=== PATIENT | female | born 1945 | race Caucasian/White ===

== ENCOUNTER → 2016-07-31 | Outpatient (CLI) | payer OTHER, BC ==
--- NOTE | 2016-07-31 16:34 | DX ---
Lumbar Spine, 6 Views Indication: Chronic back pain.. Technique: Upright AP, obliques, and lateral views in the neutral, flexed, and extended position. Comparison: None. Findings: Lumbar spine has minimal levocurvature apex at L3 with a Bernard angle of 8 degrees between L 1 and L5 pedicles. Alignment is normal on the lateral view. Normal range of motion. No instability. N o compression fracture or pars defect. Mild degenerative disk disease is present at L2-L3 through L5- S1. Hardware along the left iliac wing consists of cortical screws. Impression: 1. Mild multilevel degenerative disk and facet arthropathy. 2. No compression fracture or pars defect.
== END ==
LOC: FIMAGING 10:51
PROVIDERS: ATTEND Anesthesiology Pain Medicine
DX: M51.36 Other intervertebral disc degeneration, lumbar region (principal); M51.37 Other intervertebral disc degeneration, lumbosacral region; M46.96 Unspecified inflammatory spondylopathy, lumbar region; M46.97 Unspecified inflammatory spondylopathy, lumbosacral region

== ENCOUNTER → 2016-08-13 | Outpatient (CLI) | payer OTHER, BC ==
[~2016-08-13] MED LIST: GADOBUTROL 10 ML VIAL IVP ONE
[2016-08-13 15:33] LABS: CREATININE 0.9 mg/dL (0.6-1.0); GLOMERULAR FILTRATION RATE > 60
== END ==
LOC: FIMAGING 14:46
PROVIDERS: ATTEND Physician Assistant
DX: M51.36 Other intervertebral disc degeneration, lumbar region (principal); M51.26 Other intervertebral disc displacement, lumbar region; M48.06 Spinal stenosis, lumbar region; M99.73 Connective tissue and disc stenosis of intervertebral foramina of lumbar region; M12.88 Other specific arthropathies, not elsewhere classified, other specified site; M43.17 Spondylolisthesis, lumbosacral region
CPT/HCPCS: 72158; A9585

== ENCOUNTER → 2017-03-19 | Outpatient (CLI) | payer OTHER, BC | LOC: FIMAGING 08:42 | PROVIDERS: ATTEND Family Medicine | DX: Z12.31 Encounter for screening mammogram for malignant neoplasm of breast (principal) | CPT/HCPCS: G0202 ==

== ENCOUNTER → 2018-03-23 | Outpatient (CLI) | payer OTHER, BC | LOC: FIMAGING 08:47 | PROVIDERS: ATTEND Family Medicine | DX: Z12.31 Encounter for screening mammogram for malignant neoplasm of breast (principal); Z13.820 Encounter for screening for osteoporosis; M85.89 Other specified disorders of bone density and structure, multiple sites; E03.9 Hypothyroidism, unspecified; Z80.3 Family history of malignant neoplasm of breast ==